=== PATIENT | female | born 1985 | race Caucasian/White ===

== ENCOUNTER 2017-10-05 09:15 | Emergency (ER) | payer MEDICAID ==
[~2017-10-05] VITALS: Ht 180.3 cm; Wt 150.0 kg
[~2017-10-05 09:15] MED LIST: METF500T4 PO; SERT25TA PO; TRAZ100T15 PO
[2017-10-05] MEDS ORDERED: BUSP10TA PO (09:57)
[2017-10-05] MEDS ORDERED: IBUP200T49 PO (09:57)
[2017-10-05] MEDS ORDERED: BIRTH CONTROL PATCH TD (09:57)
[2017-10-05] MEDS ORDERED: HYDROcodone/APAP 5/325 TABLET PO ONE (10:30)
[2017-10-05] MEDS ORDERED: HYDROcodone/APAP 5/325 TABLET ONE (11:13)
[2017-10-05 12:12] VITALS: BP 144/92
== END 2017-10-05 13:21 | disposition home or self-care (01) ==
LOC: ED 11:41
DX: M72.2 Plantar fascial fibromatosis (principal); M79.671 Pain in right foot; I10 Essential (primary) hypertension; F17.200 Nicotine dependence, unspecified, uncomplicated
CPT/HCPCS: 99284

== ENCOUNTER 2019-06-15 05:14 | Emergency (ER) | payer BC, OTHER ==
[~2019-06-15] VITALS: Ht 180.3 cm; Wt 152.0 kg
[~2019-06-15 05:14] MED LIST changes: +BIRTH CONTROL PATCH TD; +BUSP10TA PO; +IBUP200T49 PO; +METF500T17 PO; -METF500T4 PO; +TRAZ-137 PO; -TRAZ100T15 PO
[2019-06-15] MEDS ORDERED: LORazepam 2 MG/ML, 1ML IVPush ONE (06:00)
[2019-06-15] MEDS ORDERED: SODIUM CHLORIDE FLUSH 10ML SYR IVF ONE (06:00)
--- NOTE | 2019-06-15 06:19 | NUR ---
IV STARTED WITH U/S GUIDANCE VIA TRACEY CHRISTIANSON. LABS DRAWN AND SENT. PT AWAITING CT SCAN AT THIS TIME. CALL LIGHT IN REACH.
[2019-06-15 06:31] LABS: MEAN CORPUSCULAR HEMOGLOBIN 28.7 pg (27.0-34.8); MEAN CORPUSCULAR HGB CONC 33.6 g/dL (32.4-35.8); MEAN CORPUSCULAR VOLUME 85.6 fL (80-100); MEAN PLATELET VOLUME 7.9 fL (7.4-10.4); PLATELET COUNT 324 x10^3/uL (130-400); RED BLOOD COUNT 5.54 x10^6/uL (3.82-5.3); RED CELL DISTRIBUTION WIDTH 13.9 % (9.6-15.2)
--- NOTE | 2019-06-15 06:40 | NUR ---
CT PENDING LAB/CREATINE
[2019-06-15 06:42] LABS: INTERNATIONAL NORMALIZED RATIO 0.95 (0.93-1.1)
[2019-06-15 06:43] LABS: ALANINE AMINOTRANSFERASE 37 U/L (12-78); ALBUMIN 3.5 g/dL (3.4-5.0); ANION GAP 7 mmol/L (5-15); CALCIUM 8.6 mg/dL (8.5-10.1); CHLORIDE 105 mmol/L (98-107); CREATININE 0.76 mg/dL (0.55-1.02)
[2019-06-15 06:48] LABS: BILIRUBIN,TOTAL 0.3 mg/dL (0.2-1.0); TROPONIN I < 0.015 ng/mL (0.000-0.045)
[2019-06-15 06:49] LABS: ALKALINE PHOSPHATASE 70 U/L (45-117)
[2019-06-15 07:08] LABS: MD YES
[2019-06-15 07:11] LABS: EOS#(MANUAL) 0.13 x10^3/uL (0.0-0.4); EOS% (MANUAL) 1 % (1-7); LYMPH#(MANUAL) 6.75 x10^3/uL (1-3.4); LYMPHS% (MANUAL) 54 % (22-44); MONOS#(MANUAL) 0.13 x10^3/uL (0.3-2.7); MONOS% (MANUAL) 1 % (2-9); SEGS% (MANUAL) 44 % (42-75)
[2019-06-15 07:12] LABS: <PLATELET ESTIMATE> ADEQUATE; <PLT MORPHOLOGY> NORMAL PLT MORPH; <RBC MORPHOLOGY> NORMAL
[2019-06-15] MEDS ORDERED: OMNIPAQUE 350 MG/ML, 150 ML BOTTLE ONE (07:16)
--- NOTE | 2019-06-15 07:24 | NUR ---
REPORT RECIEVED FROM ANA, PT BACK FROM IMAGING. STEADY AMBULATION TO BATHROOM. BACK RESTING IN BED. CALL LIGHT IN REACH
[2019-06-15] MEDS ORDERED: KETOROLAC 30 MG/1 ML ONE (07:44)
[2019-06-15] MEDS ORDERED: KETOROLAC 30 MG/1 ML IVPush ONE (08:00)
[2019-06-15] MEDS ORDERED: SODIUM CHLORIDE 0.9% 1,000ML IVBOLUS ONE ×2 (08:00→09:00)
--- NOTE | 2019-06-15 08:16 | NUR ---
PT MEDICATED ORDERED, RESTING IN BED.
[2019-06-15 08:27] LABS: RAPID INFLUENZA A Negative (Negative); RAPID INFLUENZA B Negative (Negative)
[2019-06-15 09:13] VITALS: BP 129/56
--- NOTE | 2019-06-15 09:13 | NUR ---
BREAK RN: 1L NS BOLUS STARTED. PATIENT IS SLEEPING ON GURNEY, CHEST RISE AND FALL AND SNORING NOTED.
--- NOTE | 2019-06-15 10:01 | NUR ---
DISCHARGE INSTRUCTIONS REVIEWED.
== END 2019-06-15 10:37 | disposition home or self-care (01) ==
LOC: ED 06:03
DX: R07.89 Other chest pain (principal); I11.0 Hypertensive heart disease with heart failure; I50.9 Heart failure, unspecified
CPT/HCPCS: 36415; 71045; 71275; 80053; 83880; 84484; 85025; 85610; 85730; 87400; 93005; 96374; 99284; J1885; J7030; Q9967; 96361